=== PATIENT | male | born 1950 | race American Indian/Alaskan Native ===

== ENCOUNTER 2016-11-05 15:37 | Emergency (ER) | payer OTHER ==
--- NOTE | 2016-11-05 15:47 | Emergency Department Report ---
Chief Complaint: Fall Stated Complaint: RT KNEE INJURY Time Seen by Provider: 11/05/16 15:42 - HPI History of Present Illness: PT states he tripped over a cinder block that was behind him. PT denies head injury - ROS Review of Systems: + R knee pain and swelling - loc - Exam Physical Exam: PT is alert and appropriate in triage ambulatory with cane + L knee swelling MSE screening note: Focused history and physical exam performed. Due to findings the following was ordered: knee xr, labs, head ct, ekg PT states he fell back but his injuries suggest he fell forward ED Disposition for MSE Condition: Stable
[2016-11-05 16:38] LABS: Basophils % (Auto) 0.5 % (0.0-1.8); Eosinophils % (Auto) 2.7 % (0.0-4.3); Hemoglobin 13.1 gm/dl (11.8-15.2); Mean Corpuscular HGB Conc 32 % (32-34); Mean Corpuscular Hemoglobin 28 pg (28-32); Mean Corpuscular Volume 88 fl (84-94); Platelet Count 157 K/mm3 (140-440); Red Blood Count 4.68 M/mm3 (3.65-5.03); Red Cell Distribution Width 18.7 % (13.2-15.2); White Blood Count 4.2 K/mm3 (4.5-11.0)
[2016-11-05 16:46] LABS: Alanine Aminotransferase 24 units/L (7-56); Albumin 3.7 g/dL (3.9-5); Albumin/Globulin Ratio 1.3 %; Alkaline Phosphatase 83 units/L (35-129); Anion Gap 16 mmol/L; Blood Urea Nitrogen 25 mg/dL (9-20); Calcium 9.3 mg/dL (8.4-10.2); Carbon Dioxide 24 mmol/L (22-30); Chloride 101.3 mmol/L (98-107); Glucose 190 mg/dL (75-100); Potassium 4.2 mmol/L (3.6-5.0); Sodium 137 mmol/L (137-145); Total Protein 6.6 g/dL (6.3-8.2)
[2016-11-05] MEDS ORDERED: BOOSTRIX IM ONE (20:31)
[2016-11-05] MEDS ORDERED: PERCOCET 5/325 PO ONE (20:32)
--- NOTE | 2016-11-05 20:35 | Emergency Department Report ---
HPI - General Chief Complaint: Fall Time Seen by Provider: 11/05/16 15:42 - HPI HPI: This is a 66-year-old AA M who presents to the emergency department with complaint of right knee pain and swelling after he had a fall earlier today. He was blowing leaves in his yard and tripped over a cinder block and fell forward onto his knee and his elbows. He has some abrasions to the elbows but his main concern is the right knee. He says that it looked like the kneecap was out of place. He is able to bear some weight using a cane. He has a past medical history of arthritis, diabetes, hypertension, kidney stones. He has a surgical history of rotator cuff repair, carpal tunnel release and parathyroid surgery. He gets all of his care through the [facility]. He did not take anything for her symptoms prior to presentation. He denies hitting his head or any loss of consciousness. ED Past Medical Hx - Past Medical History Hx Hypertension: Yes Hx Diabetes: Yes Hx Arthritis: Yes Hx Kidney Stones: Yes Hx Psychiatric Treatment: Yes (ANXIETY) Additional medical history: CHRONIC BACK PAIN - Surgical History Additional Surgical History: BACK SURGERY. BILATERAL ROTATOR CUFF REPAIR. BILATERAL CARPAL TUNNEL RELEASE. PARATHYROID SURGERY - Social History Smoking Status: Former Smoker Substance Use Type: Prescribed - Medications Home Medications: Home Medications Medication Instructions Recorded Confirmed Last Taken Type HYDROcodone/APAP 5-325 [[place] 1 each PO Q6HR PRN #16 tablet 11/05/16 Unknown Rx 5/325] ED Review of Systems ROS: Stated complaint: RT KNEE INJURY Other details as noted in HPI Comment: All other systems reviewed and negative Constitutional: denies: chills, fever Eyes: denies: eye pain, eye discharge, vision change ENT: denies: ear pain, throat pain Respiratory: denies: cough, shortness of breath, wheezing Cardiovascular: denies: chest pain, palpitations Gastrointestinal: denies: abdominal pain, nausea, diarrhea Genitourinary: denies: urgency, dysuria Musculoskeletal: joint swelling, arthralgia Skin: other (abrasions). denies: rash Neurological: denies: headache, weakness, paresthesias Physical Exam - Physical Exam Vital Signs: Vital Signs 11/05/16 11/05/16 11/05/16 15:43 18:55 19:58 Temperature 98.2 F Pulse Rate 65 53 L Respiratory 17 16 18 Rate Blood Pressure 150/92 Blood Pressure 166/92 [Left] O2 Sat by Pulse 100 100 98 Oximetry Physical Exam: GENERAL: The patient is well-developed well-nourished. HENT: Normocephalic. Atraumatic. Patient has moist mucous membranes. EYES: Extraocular motions are intact. Pupils equal reactive to light bilaterally. NECK: Supple. No meningitic signs are noted. There is no adenopathy noted. CHEST/LUNGS: Clear to auscultation. There is no respiratory distress noted. HEART/CARDIOVASCULAR: Regular. There is no tachycardia. There is no gallop rub or murmur. ABDOMEN: Abdomen is soft, nontender. Patient has normal bowel sounds. There is no abdominal distention. SKIN: There is moderate nonpitting swelling of the anterior right knee. There is some abrasions to the left elbows over the olecranon. NEURO: The patient is awake, alert, and oriented. The patient is cooperative. The patient has no focal neurologic deficits. The patient has normal speech. MUSCULOSKELETAL: There is tenderness to palpation to the circumferential anterior right knee where there is nonpitting swelling and what appears to be a high riding patella. There is no limitation range of motion but he has pain with movement of the affected right knee. ED Course Vital Signs 11/05/16 11/05/16 11/05/16 15:43 18:55 19:58 Temperature 98.2 F Pulse Rate 65 53 L Respiratory 17 16 18 Rate Blood Pressure 150/92 Blood Pressure 166/92 [Left] O2 Sat by Pulse 100 100 98 Oximetry ED Medical Decision Making - Lab Data Result diagrams: 11/05/16 16:08 11/05/16 16:08 - Radiology Data Radiology results: image reviewed interpreted by me: X-ray of the right knee appears consistent with a inferior patellar fracture/ avulsion with concern for tendon rupture. The patella is high riding or possibly dislocated slightly superiorly. - Medical Decision Making 66-year-old male presents with right knee pain after falling at home and falling onto his knee. He also fell onto his elbows and has some abrasions and therefore was given a tetanus booster. The x-ray of the right knee shows concern for inferior patellar fracture and possible tendon avulsion. He was placed in a knee immobilizer and given crutches and will remain nonweightbearing in the immobilizer until follow-up with an orthopedist. - Differential Diagnosis fracture, tendon rupture, contusion, sprain, strain Critical Care Time: No Critical care attestation.: If time is entered above; I have spent that time in minutes in the direct care of this critically ill patient, excluding procedure time. ED Disposition Clinical Impression: Patellar fracture Qualifiers: Encounter type: initial encounter Fracture type: closed Fracture morphology: unspecified fracture morphology Fracture alignment: displaced Laterality: right Qualified Code(s): S82.001A - Unspecified fracture of right patella, initial encounter for closed fracture Patellar tendon avulsion Qualifiers: Encounter type: initial encounter Laterality: right Qualified Code(s): S86.891A - Other injury of other muscle(s) and tendon(s) at lower leg level, right leg, initial encounter Disposition: TO HOME OR SELFCARE Is pt being admited?: No Condition: Stable Instructions: Patellar Fracture (ED), Knee Immobilizer (ED) Additional Instructions: Please follow up with an orthopedist in the next few days. Remain in the knee immobilizer until follow-up with the orthopedist. While you certainly are encouraged to see what ever orthopedist you like, I have given you a referral for a local orthopedist, Dr. Reyna. You can use ice intermittently throughout the next few days but do not place directly against the skin. Return to the emergency Department with any worsening of your symptoms or any acute distress. Prescriptions: HYDROcodone/APAP 5-325 [[place] 5/325] 1 each PO Q6HR PRN #16 tablet PRN Reason: Pain Referrals: DANYA REYNA MD [Staff Physician] - [facility] Time of Disposition: 21:22
--- NOTE | 2016-11-05 21:22 | XRay Report ---
FINAL REPORT EXAM: XR KNEE 1-2V RT HISTORY: pain and swelling RIGHT KNEE; sp fall TECHNIQUE: AP and lateral views of the right knee. PRIORS: None. FINDINGS: There is severe prepatellar, infrapatellar soft tissue swelling. Patella krishna and well corticated bone fragment is seen anterior to the patella. Acute patellar fracture is not excluded. Meniscal calcifications are seen. There is suggestion of a small joint effusion. IMPRESSION: Severe soft tissue swelling and probable joint effusion. Acute patellar fracture is not excluded. [place] view is recommended.
[2016-11-05 21:43] VITALS: BP 165/90
== END 2016-11-05 21:55 | disposition home or self-care (01) ==
LOC: ED 15:37
DX: S82.001A Unspecified fracture of right patella, initial encounter for closed fracture (principal); I10 Essential (primary) hypertension; E11.9 Type 2 diabetes mellitus without complications; M19.90 Unspecified osteoarthritis, unspecified site; Z87.891 Personal history of nicotine dependence; W01.198A Fall on same level from slipping, tripping and stumbling with subsequent striking against other object, initial encounter; Y93.89 Activity, other specified; Y92.89 Other specified places as the place of occurrence of the external cause; Y99.8 Other external cause status
CPT/HCPCS: 36415; 80053; 82962; 84484; 85025; 90471; 90715; 93005; 93010; 99284

== ENCOUNTER 2016-11-06 15:13 | Emergency (ER) | payer OTHER ==
--- NOTE | 2016-11-06 16:08 | Emergency Department Report ---
Stated Complaint: RT KNEE FX Time Seen by Provider: 11/06/16 16:06 - HPI History of Present Illness: PT states he is here today because [facility] fracture. - ROS Review of Systems: + R knee pain - Exam Physical Exam: +swelling noted to R knee PT in R knee immobilizer PT has cane with him MSE screening note: Focused history and physical exam performed. Due to findings the following was ordered: ED Disposition for MSE Condition: Stable
== END 2016-11-06 16:07 | disposition left against medical advice (07) ==
LOC: ED 15:13
DX: M25.561 Pain in right knee (principal); Z53.21 Procedure and treatment not carried out due to patient leaving prior to being seen by health care provider

== ENCOUNTER 2017-01-30 06:26 | Emergency (ER) | payer MEDICARE, OTHER ==
[2017-01-30 06:35] VITALS: BP 161/91
[2017-01-30] MEDS ORDERED: MOTRIN PO ONE (07:59)
[2017-01-30 08:26] LABS: Basophils % (Auto) 0.4 % (0.0-1.8); Hematocrit 39.5 % (35.5-45.6); Hemoglobin 12.8 gm/dl (11.8-15.2); Mean Corpuscular HGB Conc 32 % (32-34); Mean Corpuscular Hemoglobin 28 pg (28-32); Mean Corpuscular Volume 85 fl (84-94); Platelet Count 168 K/mm3 (140-440); Red Blood Count 4.64 M/mm3 (3.65-5.03); White Blood Count 3.8 K/mm3 (4.5-11.0)
--- NOTE | 2017-01-30 08:26 | Emergency Department Report ---
ED Lower Extremity HPI - General Chief Complaint: Extremity Injury, Lower Stated Complaint: BODYACHES Time Seen by Provider: 01/30/17 07:49 Source: patient Mode of arrival: Ambulatory Limitations: No Limitations - History of Present Illness Initial Comments: This is a 66-year-old male nontoxic, well nourished in appearance, no acute signs of distress presents to the ED with c/o of right knee pain x2 months. Patient stated he had surgery 2 months ago for a knee replacement and ever since then he has right knee pain. Patient denies any new trauma to the knee. Denies any joint swelling, joint redness, fever, chills, nausea, vomiting, chest pain or shortness of breath. Patient stated he does go to [facility] and does follow-up with the orthopedic doctor. Patient stated he is coming out of his pain medication and like to get a prescription for hydrocodone/acetaminophen. Patient denies any allergies. PMH includes arthritis, DM, and HTN. MD Complaint: knee injury -: month(s) (2) Injury: Knee: Right Severity: mild Severity scale (0 -10): 8 Improves With: nothing Worsens With: nothing Associated Symptoms: ambulatory. denies: snap/pop sensation, swelling, numbness , tingling, unable to bear weight, able to partially bear weight - Related Data Previous Rx's Medication Instructions Recorded Last Taken Type HYDROcodone/APAP 5-325 [[place] 1 each PO Q6HR PRN #16 tablet 11/05/16 Unknown Rx 5/325] Ibuprofen [Motrin] 600 mg PO Q8H PRN #30 tablet 01/30/17 Unknown Rx Allergies Allergy/AdvReac Type Severity Reaction Status Date / Time No Known Allergies Allergy Unverified 11/05/16 15:52 ED Review of Systems ROS: Stated complaint: BODYACHES Other details as noted in HPI Constitutional: denies: chills, fever Eyes: denies: eye pain, eye discharge, vision change ENT: denies: ear pain, throat pain Respiratory: denies: cough, shortness of breath, wheezing Cardiovascular: denies: chest pain, palpitations Endocrine: no symptoms reported Gastrointestinal: denies: abdominal pain, nausea, diarrhea Genitourinary: denies: urgency, dysuria Musculoskeletal: denies: back pain, joint swelling, arthralgia Skin: denies: rash, lesions Neurological: denies: headache, weakness, paresthesias Psychiatric: denies: anxiety, depression Hematological/Lymphatic: denies: easy bleeding, easy bruising ED Past Medical Hx - Past Medical History Previous Medical History?: Yes Hx Hypertension: Yes Hx Diabetes: Yes Hx Arthritis: Yes Hx Kidney Stones: Yes Hx Psychiatric Treatment: Yes (ANXIETY) Additional medical history: CHRONIC BACK PAIN - Surgical History Past Surgical History?: Yes Additional Surgical History: BACK SURGERY. BILATERAL ROTATOR CUFF REPAIR. BILATERAL CARPAL TUNNEL RELEASE. PARATHYROID SURGERY - Social History Smoking Status: Never Smoker Substance Use Type: None - Medications Home Medications: Home Medications Medication Instructions Recorded Confirmed Last Taken Type HYDROcodone/APAP 5-325 [[place] 1 each PO Q6HR PRN #16 tablet 11/05/16 Unknown Rx 5/325] Ibuprofen [Motrin] 600 mg PO Q8H PRN #30 tablet 01/30/17 Unknown Rx ED Physical Exam - General Limitations: No Limitations General appearance: alert, in no apparent distress - Head Head exam: Present: atraumatic, normocephalic, normal inspection - Eye Eye exam: Present: normal appearance, PERRL, EOMI. Absent: scleral icterus, conjunctival injection, nystagmus, periorbital swelling, periorbital tenderness Pupils: Present: normal accommodation - ENT ENT exam: Present: normal exam, normal orophraynx, mucous membranes moist, TM's normal bilaterally, normal external ear exam - Neck Neck exam: Present: normal inspection, full ROM. Absent: tenderness, meningismus, lymphadenopathy, thyromegaly - Respiratory Respiratory exam: Present: normal lung sounds bilaterally. Absent: respiratory distress, wheezes, rales, rhonchi, stridor, chest wall tenderness, accessory muscle use, decreased breath sounds, prolonged expiratory - Cardiovascular Cardiovascular Exam: Present: regular rate, normal rhythm, normal heart sounds. Absent: bradycardia, tachycardia, irregular rhythm, systolic murmur, diastolic murmur, rubs, gallop - GI/Abdominal GI/Abdominal exam: Present: soft, normal bowel sounds. Absent: distended, tenderness, guarding, rebound, rigid, diminished bowel sounds - Rectal Rectal exam: Present: deferred - Extremities Exam Extremities exam: Present: normal inspection, full ROM, tenderness, normal capillary refill. Absent: pedal edema, joint swelling, calf tenderness - Expanded Lower Extremity Exam Right Hip exam: Present: normal inspection, full ROM Upper Leg exam: Present: normal inspection, full ROM Knee exam: Present: normal inspection, full ROM, tenderness, full knee extension. Absent: swelling, abrasion, laceration, ecchymosis, deformity, crepidus, dislocation, effusion, pain w/ pronation/supination, posterior draw sign, pain/laxity with valgus, pain/laxity with varus Lower Leg exam: Present: normal inspection, full ROM. Absent: tenderness, swelling, abrasion, laceration, ecchymosis, deformity, crepidus, dislocation, erythema, palpable cord, Tammi's sign Ankle exam: Present: normal inspection, full ROM Foot/Toe exam: Present: normal inspection, full ROM Neuro vascular tendon exam: Present: no vascular compromise. Absent: pulse deficit, abnormal cap refill, motor deficit, sensory deficit, tendon deficit, extremity cold to touch, pallor, abnormal 2-point discrimination, decreased fine /light touch, foot drop, peroneal nerve deficit, significant pain with passive ROM of distal joint Gait: Positive: observed and limited by pain - Back Exam Back exam: Present: normal inspection, full ROM. Absent: tenderness, CVA tenderness (R), CVA tenderness (L), muscle spasm, paraspinal tenderness, vertebral tenderness, rash noted - Neurological Exam Neurological exam: Present: alert, oriented X3, CN II-XII intact, normal gait, reflexes normal - Psychiatric Psychiatric exam: Present: normal affect, normal mood - Skin Skin exam: Present: warm, dry, intact, normal color. Absent: rash ED Course Vital Signs 01/30/17 01/30/17 06:30 06:41 Temperature 98.0 F 98.0 F Pulse Rate 88 88 Respiratory 18 17 Rate Blood Pressure 161/91 161/91 O2 Sat by Pulse 99 99 Oximetry - Reevaluation(s) Reevaluation #1: 01/30/17 08:28 Patient is speaking in full sentences with no signs of distress noted. ED Lower Extremity MDM - Lab Data Result diagrams: 01/30/17 08:00 01/30/17 08:00 - Medical Decision Making This is a 66-year-old male that presents with chronic Right knee pain. Patient is stable and was examined by me. There is no joint swelling, joint redness, cellulitis. Extremity is not warm to touch. Normal range of motion. Patient received Motrin 800 mg by mouth in ED and Toradol and patient symptoms are improving and are subsiding of pain. X-ray, CBC, BMP obtained. X-ray obatined and pending. Patient stated he does not have time to wait for xray results and wants to sign AMA. Patient was instructed and educated and my concerns but patient stated he jsut wants to sign AMA. [facility] obtained and indicates patient has been prescribed hydrocodone/acetaminophen 10 mg on 01/25 for 28 days with total quantity of 84 as well as tramadol 50 mg on 01/01 with quantity of 180. Patient received Motrin at d/c. Patient was instructed Follow-up with a orthopedic doctor in 24 hours or if symptoms worsen and continue return to emergency room as soon as possible. At time time of signing AMA, the patient does not seem toxic or ill in appearance. No acute signs of distress noted. Patient agrees treatment plan of care. No further questions noted by the patient. Critical care attestation.: If time is entered above; I have spent that time in minutes in the direct care of this critically ill patient, excluding procedure time. ED Disposition Clinical Impression: Chronic pain of right knee Disposition: [id number] LEFT AGAINST MED ADVICE Is pt being admited?: No Does the pt Need Aspirin: No Condition: Stable Instructions: Ibuprofen (By mouth), Knee Pain (ED), RICE Therapy (ED) Additional Instructions: Follow-up with a orthopedic doctor in 24 hours or if symptoms worsen and continue return to emergency room as soon as possible. Prescriptions: Ibuprofen [Motrin] 600 mg PO Q8H PRN #30 tablet PRN Reason: Pain Referrals: [facility] [Outside] - 3-5 Days [facility] [Outside] - 3-5 Days DANYA TRINH MD [Staff Physician] - 24 Hours PRIMARY CARE, [Primary Care Provider] - 24 Hours
[2017-01-30 08:41] LABS: Anion Gap 18 mmol/L; BUN/Creatinine Ratio 24; Blood Urea Nitrogen 22 mg/dL (9-20); Calcium 10.3 mg/dL (8.4-10.2); Carbon Dioxide 25 mmol/L (22-30); Chloride 101.5 mmol/L (98-107); Glucose 185 mg/dL (75-100); Potassium 4.7 mmol/L (3.6-5.0); Sodium 140 mmol/L (137-145)
[2017-01-30] MEDS ORDERED: TORADOL IM ONE (08:59)
--- NOTE | 2017-01-30 16:18 | XRay Report ---
XRAY RIGHT KNEE FOUR VIEWS: 01/30/17 06:26:00 CLINICAL: Knee pain. History of knee surgery. COMPARISON: 11/05/16 FINDINGS: Mild osteopenia. Mild narrowing of the medial joint space as seen on the prior exam. Bilateral meniscal calcifications. Stable irregularity of the anterior patella with at least one free fragment of bone at the inferior pole. No other fracture and no dislocation. Mild opacification of the suprapatellar bursa and anterior suprapatellar and infrapatellar soft tissue edema which is not significantly changed compared to the prior exam. A few new patellar calcifications are identified. IMPRESSION: Chronic changes in the patella and mild medial joint space arthritis. Chronic soft tissue edema. Bilateral meniscal calcification or chondrocalcinosis.
== END 2017-01-30 10:49 | disposition left against medical advice (07) ==
LOC: ED 06:26
DX: M25.561 Pain in right knee (principal); G89.29 Other chronic pain; I10 Essential (primary) hypertension; E11.9 Type 2 diabetes mellitus without complications; M19.90 Unspecified osteoarthritis, unspecified site; Z98.890 Other specified postprocedural states
CPT/HCPCS: 36415; 73564; 80048; 85025; 96372; 99284; J1885